=== PATIENT | male | born 1965 | race Caucasian/White ===

== ENCOUNTER 2020-04-19 09:53 | Inpatient (IN) | payer OTHER ==
[2020-04-19] MEDS ORDERED: ASPIRIN 81 MG PO STA (10:05)
[2020-04-19] MEDS ORDERED: NITROGLYCERIN SL TABS 0.4 MG TAB SUBLINGUAL STA ×3 (10:05)
[2020-04-19] MEDS ORDERED: HEPARIN SODIUM,PORCINE 5,000 UNIT/ML 1 ML VIAL IV STA (10:05)
--- NOTE | 2020-04-19 10:08 | ED ---
General Adult HPI - General Chief complaint: Chest Pain Stated complaint: Chest pain Time Seen by Provider: 04/19/20 09:55 Source: patient, RN notes reviewed, old records reviewed Mode of arrival: ambulatory Limitations: no limitations - History of Present Illness Initial comments: This is a 54-year-old male who presents emergency Department complaining of onset of chest pain approximately 20 minutes ago. Patient states chest pain is severe in complaining of bilateral arm pain. Patient states he has family history of heart disease. Patient also has high blood pressure which he does not take any medicines for. Patient chews tobacco but does not smoke. Patient denies any diabetes or high cholesterol. Patient states he is somewhat short of breath. Patient is a little bit nauseous. Patient denies abdominal pain patient denies vomiting or diarrhea. Patient has had intermittent pain all week but has not told anyone. Patient denies any recent fever chills or cough. - Related Data Home Medications Medication Instructions Recorded Confirmed No Known Home Medications 04/19/20 04/19/20 Allergies Allergy/AdvReac Type Severity Reaction Status Date / Time No Known Allergies Allergy Verified 04/19/20 10:11 Review of Systems ROS Statement: Those systems with pertinent positive or pertinent negative responses have been documented in the HPI. ROS Other: All systems not noted in ROS Statement are negative. Past Medical History Past Medical History: Hypertension History of Any Multi-Drug Resistant Organisms: None Reported Past Surgical History: Appendectomy, Orthopedic Surgery Past Psychological History: No Psychological Hx Reported Smoking Status: Never smoker Past Alcohol Use History: Occasional Past Drug Use History: None Reported General Exam - General Exam Comments Initial Comments: GENERAL: Patient is well-developed and well-nourished. Patient is nontoxic and well- hydrated and is in mild distress. ENT: Neck is soft and supple. No significant lymphadenopathy is noted. Oropharynx is clear. Moist mucous membranes. Neck has full range of motion without eliciting any pain. EYES: The sclera were anicteric and conjunctiva were pink and moist. Extraocular movements were intact and pupils were equal round and reactive to light. Eyelids were unremarkable. PULMONARY: Unlabored respirations. Good breath sounds bilaterally. No audible rales rhonchi or wheezing was noted. CARDIOVASCULAR: There is a regular rate and rhythm without any murmurs gallops or rubs. ABDOMEN: Soft and nontender with normal bowel sounds. SKIN: Skin is clear with no lesions or rashes and otherwise unremarkable. NEUROLOGIC: Patient is alert and oriented x3. Cranial nerves II through XII are grossly intact. Motor and sensory are also intact. Normal speech, volume and content. Symmetrical smile. MUSCULOSKELETAL: Normal extremities with adequate strength and full range of motion. No lower extremity swelling or edema. No calf tenderness. LYMPHATICS: No significant lymphadenopathy is noted PSYCHIATRIC: Normal psychiatric evaluation. Limitations: no limitations Course Vital Signs 04/19/20 04/19/20 09:55 10:11 Temperature 98 F Pulse Rate 84 63 Respiratory 18 24 Rate Blood Pressure 118/87 O2 Sat by Pulse 100 100 Oximetry Medical Decision Making - Medical Decision Making EKG shows sinus rhythm with frequent PVCs at all so is at a rate of 75 bpm [place] interval is 128 QRS is 90 QT interval 364 QTC is 46. Patient also was ST segment elevation throughout the precordial leads. STEMI was called overhead. Dr. Willis responded literally immediately. Patient was given aspirin and heparin and nitroglycerin sublingual. Patient was admitted and consulted cardiology. I spoke with Dr. Ramos agreed to admit the patient admitted the patient wrote admitting orders and the patient went to the catheterization lab - Lab Data Result diagrams: 04/19/20 10:07 Lab Results 04/19/20 Range/Units 10:07 WBC 11.5 H (3.8-10.6) k/uL RBC 5.11 (4.30-5.90) m/uL Hgb 16.4 (13.0-17.5) gm/dL Hct 46.8 (39.0-53.0) % MCV 91.6 (80.0-100.0) fL MCH 32.0 (25.0-35.0) pg MCHC 35.0 (31.0-37.0) g/dL RDW 12.1 (11.5-15.5) % Plt Count 323 (150-450) k/uL MPV 6.5 Neutrophils % 51 % Lymphocytes % 37 % Monocytes % 6 % Eosinophils % 3 % Basophils % 1 % Neutrophils # 5.9 (1.3-7.7) k/uL Lymphocytes # 4.2 (1.0-4.8) k/uL Monocytes # 0.6 (0-1.0) k/uL Eosinophils # 0.3 (0-0.7) k/uL Basophils # 0.1 (0-0.2) k/uL Critical Care Time Critical Care Time: Yes Total Critical Care Time: 35 Disposition Clinical Impression: ST elevation myocardial infarction (STEMI) Disposition: ADMITTED IP TO THIS HOSP Referrals: Aristides Pimentel MD [Primary Care Provider] - 1-2 days Time of Disposition: 10:07
[2020-04-19 10:10] LABS: Basophils # (A) 0.1 k/uL (0-0.2); Basophils % (A) 1 %; Eosinophils # (A) 0.3 k/uL (0-0.7); Eosinophils % (A) 3 %; HCT 46.8 % (39.0-53.0); HGB 16.4 gm/dL (13.0-17.5); Lymphocytes # (A) 4.2 k/uL (1.0-4.8); Lymphocytes % (A) 37 %; MCV 91.6 fL (80.0-100.0); Mean Platelet Volume 6.5; Monocytes # (A) 0.6 k/uL (0-1.0); Monocytes % (A) 6 %; Neutrophils # (A) 5.9 k/uL (1.3-7.7); Neutrophils % (A) 51 %; Platelet Count 323 k/uL (150-450); RBC 5.11 m/uL (4.30-5.90); RDW 12.1 % (11.5-15.5); WBC 11.5 k/uL (3.8-10.6)
[2020-04-19] MEDS ORDERED: ONDANSETRON 4 MG/2 ML VIAL IVP STA (10:10)
--- NOTE | 2020-04-19 10:12 | P.CRDCN ---
History of Present Illness History of present illness: HISTORY OF PRESENTING ILLNESS This is a pleasant 54-year-old male past medical history significant for possible hypertension however untreated, prior tobacco abuse, and family history of coronary artery disease who presents for chest pain. He has not had follow- up with any doctors in some time. His admits he has a history of elevated blood pressures however does not take medications. He previously smoked up until a few years ago and occasionally uses chewing tobacco. He has been having some chest pressure sensation over the last week which has been coming and going. He was at [employer] and then noted sudden onset of chest pain approximately 20 minutes prior to arrival and therefore presented to emergency department. EKG shows anterior STEMI. He was given nitroglycerin without much improvement. DIAGNOSTICS EKG reveals sinus rhythm, ST elevation anterior leads. Chest xray pending. Laboratory reviewed, pending. Current cardiac medications include aspirin, heparin 4000 units. REVIEW OF SYSTEMS At the time of my exam: CONSTITUTIONAL: Denies fever or chills. CARDIOVASCULAR: +chest pain, +shortness of breath, no orthopnea, PND or palpitations. RESPIRATORY: Denies cough. GASTROINTESTINAL: Denies abdominal pain, diarrhea, constipation, nausea or vomiting. MUSCULOSKELETAL: Denies myalgias. NEUROLOGIC: Denies numbness, tingling or weakness. ENDOCRINE: Denies fatigue, weight change, polydipsia or polyurina. GENITOURINARY: Denies burning, hematuria or urgency with micturation. HEMATOLOGIC: Denies history of anemia or bleeding. PHYSICAL EXAMINATION Blood pressure 144/112 heart rate 82 afebrile and maintaining oxygen saturation on room air. CONSTITUTIONAL: Patient in visible distress. HEENT: Head is normocephalic. Pupils are equal, round. Sclerae anicteric. Mucous membranes of the mouth are moist. No JVD. No carotid bruit. CHEST EXAMINATION: Lungs are clear to auscultation. No chest wall tenderness is noted on palpation or with deep breathing. HEART EXAMINATION: Regular rate and rhythm. S1, S2 heard. No murmurs, gallops or rub. ABDOMEN: Soft, nontender. Positive bowel sounds. EXTREMITIES: 2+ peripheral pulses, no lower extremity edema and no calf tenderness. NEUROLOGIC EXAMINATION: Patient is awake, alert and oriented x3. ASSESSMENT 1. Anterior STEMI 2. Hypertension 3. Chewing tobacco and prior smoking tobacco abuse 4. Family history of CAD PLAN Discussed risks and benefits of heart catheterization and patient agreeable. Emergency heart catheterization with PCI. Past Medical History Past Medical History: Hypertension History of Any Multi-Drug Resistant Organisms: None Reported Past Surgical History: Appendectomy, Orthopedic Surgery Past Psychological History: No Psychological Hx Reported Smoking Status: Never smoker Past Alcohol Use History: Occasional Past Drug Use History: None Reported Medications and Allergies Home Medications Medication Instructions Recorded Confirmed Type Acetaminophen with Codeine 1 each PO Q4H PRN #20 tab 10/11/15 Rx [Tylenol w/codeine #3] methylPREDNISolone [Medrol] 4 mg PO DIRECTED #21 tab.ds.pk 10/11/15 Rx Allergies Allergy/AdvReac Type Severity Reaction Status Date / Time No Known Allergies Allergy Verified 04/19/20 09:55 Physical Exam Vitals: Vital Signs Temp Pulse Resp Pulse Ox 04/19/20 09:55 98 F 84 18 100 Intake and Output 04/18/20 04/19/20 04/19/20 22:59 06:59 14:59 Other: Weight 83.915 kg Results Intake and Output 04/18/20 04/19/20 04/19/20 22:59 06:59 14:59 Other: Weight 83.915 kg Patient Weight 04/20/20 06:59 Weight 83.915 kg
[2020-04-19] MEDS ORDERED: SODIUM CHLORIDE 0.9% 500 ML 500 ML IV ONE ×3 (10:14→10:53)
[2020-04-19] MEDS ORDERED: MORPHINE SULFATE 2 MG/ML SYRINGE IVP STA ×3 (10:17→21:56)
[2020-04-19] MEDS ORDERED: LORazepam 2 MG/ML INJ IV STA (10:18)
[2020-04-19 10:20] LABS: ALT 26 U/L (4-49); AST 25 U/L (17-59); African American GFR (CKD) >90 (>60 ml/min/1.73 sqM); Alkaline Phosphatase 73 U/L (38-126); Anion Gap 11 mmol/L; Blood Urea Nitrogen 20 mg/dL (9-20); Calcium 10.3 mg/dL (8.4-10.2); Carbon Dioxide 24 mmol/L (22-30); Chloride 103 mmol/L (98-107); Glucose 125 mg/dL (74-99); Non-African American GFR(CKD) 90 (>60 ml/min/1.73 sqM); Potassium 3.8 mmol/L (3.5-5.1); Sodium 138 mmol/L (137-145); Total Protein 8.3 g/dL (6.3-8.2)
--- NOTE | 2020-04-19 10:33 | XR ---
EXAMINATION TYPE: XR chest 1V DATE OF EXAM: 04/19/2020 COMPARISON: NONE HISTORY: Chest pain TECHNIQUE: Single frontal view of the chest is obtained. FINDINGS: There is no focal air space opacity, pleural effusion, or pneumothorax seen. The cardiac silhouette size is within normal limits. There are overlying leads. Postop change noted to the left bony glenoid The osseous structures are intact. IMPRESSION: No acute process.
[2020-04-19 10:37] LABS: INR 0.9 (<1.2); Prothrombin Time 10.1 sec (9.0-12.0)
[2020-04-19 10:47] LABS: Partial Thromboplastin Time 21.5 sec (22.0-30.0)
[2020-04-19] MEDS ORDERED: fentaNYL (PF) 50 MCG/ML 2 ML AMP IV ONE (10:50)
[2020-04-19] MEDS ORDERED: MIDAZOLAM 2 MG/2 ML VIAL IV ONE (10:50)
[2020-04-19] MEDS ORDERED: LIDOCAINE 1% INJ 10MG/ML (20 ML MDV) SQ ONE (10:51)
[2020-04-19] MEDS ORDERED: VERAPAMIL SYRINGE (5 MG/10 ML) INTRAARTER ONE (10:52)
[2020-04-19] MEDS ORDERED: HEPARIN SODIUM 1,000 UN/ML (10ML VL) IV ONE (10:54)
[2020-04-19] MEDS ORDERED: TICAGRELOR 90 MG TAB PO ONE (10:58)
[2020-04-19] MEDS ORDERED: NITROGLYCERIN 1000MCG/10ML SYRINGE INTRACORON ONE ×2 (11:00→11:05)
[2020-04-19] MEDS: niCARdipine Syringe (1,000 mcg/10 mL) INTRACORON ONE ×2 (11:10→11:22)
[2020-04-19] MEDS ORDERED: niCARdipine Syringe (1,000 mcg/10 mL) INTRACORON ONE (11:15)
[2020-04-19] MEDS ORDERED: IOPAMIDOL-370 125ML BTL INJ ONE ×2 (11:22→11:44)
[2020-04-19] MEDS ORDERED: IOPAMIDOL-370 50ML BTL INJ ONE (11:51)
[2020-04-19 12:25] LABS: Glucose,Whole Blood 103 mg/dL (75-99)
[2020-04-19] MEDS ORDERED: ZOLPIDEM 5 MG TAB PO PRN (15:03)
[2020-04-19] MEDS ORDERED: MAG HYDROX/AL HYDROX/SIMETH 30 ML CUP PO PRN (15:03)
[2020-04-19] MEDS ORDERED: NITROGLYCERIN SL TABS 0.4 MG TAB SUBLINGUAL PRN (15:03)
[2020-04-19] MEDS ORDERED: RX INFO: IV CONTRAST WAS GIVEN 1 EACH MISC MISCELLANE PRN (15:03)
[2020-04-19] MEDS ORDERED: ATROPINE SULFATE 0.1 MG/ML 10ML SYRINGE IV PRN (15:03)
[2020-04-19] MEDS ORDERED: NITROGLYCERIN-D5W PMX 50 MG in DEXTROSE/WATER 1 250ML.BAG IV SCH (15:15)
[2020-04-19] MEDS: ACETAMINOPHEN TAB 500 MG TAB PO PRN ×2 (15:42→20:17)
--- NOTE | 2020-04-19 18:01 | ECHOF ---
Referral Reason:evaluate left ventricular function MEASUREMENTS -------- HEIGHT: 177.8 cm WEIGHT: 83.9 kg BP: RVIDd: 1.9 cm (< 3.3) IVSd: 1.5 cm (0.6 - 1.1) LVIDd: 3.4 cm (3.9 - 5.3) LVPWd: 1.7 cm (0.6 - 1.1) IVSs: 1.2 cm LVIDs: 2.8 cm LVPWs: 2.1 cm LAESV Index (A-L): 22.29 ml/m Ao Diam: 3.2 cm (2.0 - 3.7) AV Cusp: 2.4 cm (1.5 - 2.6) LA Diam: 3.2 cm (2.7 - 3.8) MV EXCURSION: 17.007 mm (> 18.000) MV EF SLOPE: 82 mm/s (70 - 150) EPSS: 0.8 cm MV E Navi: 0.54 m/s MV DecT: 242 ms MV A Navi: 0.55 m/s MV E/A Ratio: 0.98 RAP: 5.00 mmHg RVSP: 9.06 mmHg FINDINGS -------- This was a technically difficult study with suboptimal views. The left ventricular size is normal. There is moderate concentric left ventricular hypertrophy. O verall left ventricular systolic function is moderately impaired with, an EF between 35 - 40 %. Api jocelyn anterior LV wall motion is hypokinetic. Apical lateral LV wall motion is hypokinetic. Apica l inferior LV wall motion is hypokinetic. Apical septum LV wall motion is hypokinetic. The right ventricle is normal in size. The left atrial size is normal. Normal LA size by volume 22+/-6 ml/m2. The right atrial size is normal. 5.0mg of Lumason was utilized for enhancement of images Aortic valve is trileaflet and is mildly thickened. The mitral valve is normal. There is trace mitral regurgitation. The tricuspid valve appears structurally normal. Trace tricuspid regurgitation present. Right rayna tricular systolic pressure is normal at < 35 mmHg. There is no pulmonic regurgitation present. The aortic root size is normal. Normal inferior vena cava with normal inspiratory collapse consistent with estimated right atrial pre ssure of 5 mmHg. There is no pericardial effusion. CONCLUSIONS -------- 1. The left ventricular size is normal. 2. There is moderate concentric left ventricular hypertrophy. 3. Overall left ventricular systolic function is moderately impaired with, an EF between 35 - 40 %. 4. Apical anterior LV wall motion is hypokinetic. 5. Apical lateral LV wall motion is hypokinetic. 6. Apical inferior LV wall motion is hypokinetic. 7. Apical septum LV wall motion is hypokinetic. 8. Aortic valve is trileaflet and is mildly thickened. 9. There is trace mitral regurgitation. 10. Trace tricuspid regurgitation present. 11. There is no pericardial effusion. PARKING SUPERVISOR: Tanisha Odom RDCS
[2020-04-19] MEDS: TICAGRELOR 90 MG TAB PO SCH (20:17)
--- NOTE | 2020-04-19 21:22 | P.PRCINT ---
Percutaneous Coronary Int. - Percutaneous Coronary Intervention Percutaneous Coronary Intervention: PROCEDURES PERFORMED: Left heart catheterization, bilateral coronary angiography, PCI of proximal LAD with 3.5 x 28mm Xience FARHANA, post dilated with a 4.0 NC balloon, aspiration thrombectomy LAD, intracoronary Nicardipine INDICATION: Anterior STEMI HISTORY: This is a pleasant 54-year-old male past medical history significant for likely hypertension, not on medications, prior smoking tobacco abuse, current chewing tobacco, and family history of CAD who has been having off and on chest pain over the last 1 week. He then noted excruciating chest pain today while at grocery store and immediately came to ER. EKG showed anterior STEMI and therefore LHC was recommended. CONSENT:I have discussed the risks, benefits and alternative therapies for the above-mentioned procedure and for both sedation/analgesia as well as necessary blood product administration, if indicated, as they pertain to this patient. The patient has indicated understanding and acceptance of the risks and procedures discussed. PROCEDURE: After the risks, benefits and alternatives of the above mentioned procedure explained in detail with the patient, informed consent was obtained. Patient was taken to the catheterization lab and prepped and draped in usual fashion. 1% lidocaine was used to anesthetize the right radial artery. A 6- Malawian sheath was placed in the right radial artery using modified Seldinger technique. Left coronary angiography was performed with a 6-Malawian CLS 3.5 guide catheter. Right coronary angiography was performed with an AR 2 catheter in various views. The decision was made to intervene on the LAD. Heparin was given for ACT > 250. A 0.014 BMW guidewire was inserted into the distal LAD. The lesion was predilated with a 2.5 x 12mm Balloon. Next a 3.5 x 28mm Xience FARHANA was place at the ostial LAD. The stent was post dilated with a 4.0 NC balloon. There was no reflow with possible apical LAD thrombus and therefore intracoronary Nicardipine was given and an Kingston catheter was advanced to the distal LAD with aspiration thombectomy performed. No reflow improved with ZACH 2-3 flow distally and therefore the wire was pulled. Final angiograms were performed. Pre intervention there was 100% stenosis with ZACH 0 flow. After intervention there was no signficant stenosis and ZACH 2-3 flow. Finally, a 6-Malawian pigtail catheter was inserted into the left ventricle and pressure measurements were obtained. The right radial sheath was removed and a TR band was placed with hemostasis achieved. The patient tolerated the procedure well. Patient was transported back to the post catheterization holding area in stable condition. Conscious Sedation: Patient was monitored under the direct supervision of vision of myself for conscious sedation using Versed and fentanyl for a total duration of 68 minutes HEMODYNAMICS: Aorta: 109/67 LV: 108/2 LVEDP 27mmHg SELECTIVE CORONARY ARTERIOGRAPHY: LEFT MAIN: The left main is a large caliber vessel which trifurcates into the LAD, a small caliber ramus and circumflex. There is no significant stenosis. LEFT ANTERIOR DESCENDING CORONARY ARTERY: LAD is a large caliber vessel which wraps around to the apex. There is 100% proximal LAD stenosis. RAMUS INTERMEDIUS: Ramus has mild 30% stenosis. LEFT CIRCUMFLEX CORONARY ARTERY: Left circumflex is a large caliber vessel which has a proximal 50-60% stenosis. RIGHT CORONARY ARTERY: The right coronary artery is a large caliber vessel which gives off a PDA and PLV branch and is the dominant vessel. The bifurcation of the PLV and PDA is proximal. The PDA has a very proximal 50% stenosis followed by tandem 80% and 50% stenoses. FINAL IMPRESSION: 1. CAD as described above with 100% proximal LAD stenosis, s/p PCI of proximal LAD with 3.5 x 28mm Xience FARHANA. Residual PDA 80% stenosis. 2. Elevated left-sided filling pressures PLAN: 1. Aggressive risk factor modification per most recent ACC/AHA guidelines. 2. Continue dual antiplatelets for 12 months. 3. May consider staged PCI of PDA.
[2020-04-19] MEDS ORDERED: MORPHINE SULFATE 4 MG/ML SYRINGE IVP PRN (22:06)
--- NOTE | 2020-04-19 22:09 | P.HPIM ---
History of Present Illness H&P Date: 04/19/20 Chief Complaint: Chest pain History of presenting complaint: This is a pleasant [address] Pimentel. Patient does chew tobacco. For 3 days been having chest pain on and off. Became progressively worse today. Present to the ER. It was radiating to both the arms. Hasn't a positive family history. Has a known history of hypertension but not taking any medications. Also some shortness of breath and nausea. Initial troponin was 0.117. EKG showed ST elevation anterior leads. Patient was taken to the cardiac catheterization lab. 100% occlusion of LAD was found that was successful angioplasty and stented. Patient and brought back to the ICU. Postprocedure patient still having chest pain. Put on a nitroglycerin drip. Still showing some ST elevation on the telemetry. Review of systems: GEN.: Tired EYES: None HEENT: None NECK: None RESPIRATORY: As above CARDIOVASCULAR: As above GASTROINTESTINAL: None GENITOURINARY: None MUSCULOSKELETAL: None LYMPHATICS: None HEMATOLOGICAL: None PSYCHIATRY: None NEUROLOGICAL: None Past medical history to include: Hypertension for which patient is not taking his medications Social history: . Did smoke in the past. Alcohol occasional. 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 EYES: Pupils equal. Conjunctiva normal. HEENT: External appearance of nose and ears normal, oral cavity grossly normal. NECK: JVD not raised; masses not palpable. HEART: First and second heart sounds are normal; no edema. LUNGS: Respiratory rate normal; fair air entry. ABDOMEN: Soft, nontender, liver spleen not palpable, no masses palpable. PSYCH: Alert and oriented x3; mood and affect normal. NEUROLOGICAL: Cranial nerves grossly intact; no facial asymmetry, power and sensation grossly intact. LYMPHATICS: No lymph nodes palpable in the axilla and neck INVESTIGATIONS, reviewed in the clinical context: White count 11.5 hemoglobin 16.4 platelets 323 potassium 3.8 creatinine 0.97 Troponin I 0.117 Coronavirus [PCF]-not detected EKG tracing personally reviewed by me-ST elevation in anterior leads, sinus rhythm, PVC Chest x-ray film personally reviewed by me-cardiomegaly 2-D echocardiogram-moderate concentric LVH, EF 35-40%. LV ma hypokinetic Assessment and plan: -Acute ST elevation myocardial infarction of the anterior wall, with urgent cardiac catheterization with LAD 100% occluded with successful stenting and angioplasty. Patient also started on aspirin Brillinta. -Post coronary intervention angina persisted. Patient is on a nitroglycerin dr miguel -Essential hypertension. We'll add beta donna -Reactive leukocytosis secondary to acute OR Care was discussed with the patient. Questions were answered. Patient was seen by Dr. Willis from cardiology. Patient's currently in the ICU. Past Medical History Past Medical History: Hypertension History of Any Multi-Drug Resistant Organisms: None Reported Past Surgical History: Appendectomy, Orthopedic Surgery Past Anesthesia/Blood Transfusion Reactions: No Reported Reaction Past Psychological History: No Psychological Hx Reported Smoking Status: Former smoker Past Alcohol Use History: Occasional Past Drug Use History: None Reported - Past Family History Father Family Medical History: Coronary Artery Disease (CAD) Medications and Allergies Home Medications Medication Instructions Recorded Confirmed Type No Known Home Medications 04/19/20 04/19/20 History Allergies Allergy/AdvReac Type Severity Reaction Status Date / Time No Known Allergies Allergy Verified 04/19/20 10:11 Physical Exam Vitals: Vital Signs Temp Pulse Resp BP Pulse Ox 04/19/20 21:00 64 13 106/64 96 04/19/20 20:00 97.7 F 71 19 122/81 93 L 04/19/20 19:00 68 17 102/64 95 04/19/20 18:45 78 29 H 102/64 95 04/19/20 18:30 58 L 15 138/75 94 L 04/19/20 18:15 67 15 138/75 95 04/19/20 18:00 67 18 121/77 95 04/19/20 17:45 72 22 121/77 94 L 04/19/20 17:30 67 14 119/77 94 L 04/19/20 17:15 64 20 119/77 93 L 04/19/20 17:00 74 14 130/87 94 L 04/19/20 16:45 68 14 130/87 95 04/19/20 16:30 68 13 131/87 94 L 04/19/20 16:15 68 16 131/87 92 L 04/19/20 16:00 75 9 L 122/77 93 L 04/19/20 15:45 70 9 L 122/77 93 L 04/19/20 15:30 75 7 L 119/80 94 L 04/19/20 15:15 70 12 119/80 94 L 04/19/20 15:00 68 5 L 116/72 96 04/19/20 14:45 61 13 116/72 94 L 04/19/20 14:30 68 17 127/84 96 04/19/20 14:15 64 14 127/84 96 04/19/20 14:00 65 16 118/87 95 04/19/20 13:45 67 24 118/87 97 04/19/20 13:30 55 L 23 112/79 96 04/19/20 13:15 65 13 109/76 97 04/19/20 13:00 57 L 0 L 108/78 96 04/19/20 12:45 63 14 115/74 95 04/19/20 12:30 98.4 F 89 32 H 124/77 95 04/19/20 12:18 67 6 L 04/19/20 12:00 24 04/19/20 10:32 60 22 118/77 97 04/19/20 10:23 56 L 26 H 121/86 97 04/19/20 10:22 21 04/19/20 10:21 60 20 126/89 100 04/19/20 10:16 64 20 132/89 99 04/19/20 10:11 63 24 118/87 100 04/19/20 10:05 180/128 100 04/19/20 10:02 20 168/117 100 04/19/20 09:55 98 F 84 18 100 Intake and Output 04/19/20 04/19/20 04/19/20 06:59 14:59 22:59 Intake Total 300 1202.325 Output Total 400 750 Balance -100 452.325 Intake: IV 300 450 Sodium Chloride 0.9% 500 150 450 ml 500 ml @ 0 mls/hr IV . [facility] Rx#: [id number] Intake, IV Titration 12.325 Amount Nitroglycerin-D5w Pmx 50 12.325 mg In Dextrose/Water 1 250ml.bag @ Titrate IV . Q0M [facility] Rx#:[id number] Oral 740 Output: Urine 400 750 Other: # Voids 1 1 Weight 83.915 kg Results CBC & Chem 7: 04/19/20 10:07 04/19/20 10:07 Labs: Abnormal Lab Results - Last 24 Hours (Table) 04/19/20 04/19/20 04/19/20 Range/Units 10:07 10:07 10:07 WBC 11.5 H (3.8-10.6) k/uL APTT 21.5 L (22.0-30.0) sec Glucose 125 H (74-99) mg/dL POC Glucose (mg/dL) (75-99) mg/dL Calcium 10.3 H (8.4-10.2) mg/dL Troponin I (0.000-0.034) ng/mL Total Protein 8.3 H (6.3-8.2) g/dL 04/19/20 04/19/20 Range/Units 10:07 12:24 WBC (3.8-10.6) k/uL APTT (22.0-30.0) sec Glucose (74-99) mg/dL POC Glucose (mg/dL) 103 H (75-99) mg/dL Calcium (8.4-10.2) mg/dL Troponin I 0.117 H* (0.000-0.034) ng/mL Total Protein (6.3-8.2) g/dL Thrombosis Risk Factor Assmnt - Choose All That Apply Any of the Below Risk Factors Present?: Yes Each Factor Represents 1 point: Age 41-60 years Thrombosis Risk Factor Assessment Total Risk Factor Score: 1 Thrombosis Risk Factor Assessment Level: Low Risk
[2020-04-19] MEDS: ATORVASTATIN 80 MG TAB PO SCH (22:15)
[2020-04-19] MEDS: METOPROLOL TARTRATE 12.5 MG TAB PO SCH (22:15)
[2020-04-20 04:21] LABS: Basophils % (A) 0 %; Eosinophils # (A) 0.1 k/uL (0-0.7); Eosinophils % (A) 1 %; HCT 41.3 % (39.0-53.0); HGB 13.6 gm/dL (13.0-17.5); Lymphocytes # (A) 1.7 k/uL (1.0-4.8); Lymphocytes % (A) 13 %; MCH 30.8 pg (25.0-35.0); MCHC 33.1 g/dL (31.0-37.0); MCV 93.2 fL (80.0-100.0); Mean Platelet Volume 6.6; Monocytes # (A) 0.8 k/uL (0-1.0); Monocytes % (A) 6 %; Neutrophils # (A) 10.7 k/uL (1.3-7.7); Neutrophils % (A) 79 %; Platelet Count 228 k/uL (150-450); RBC 4.43 m/uL (4.30-5.90); RDW 12.3 % (11.5-15.5); WBC 13.6 k/uL (3.8-10.6)
[2020-04-20 05:00] LABS: African American GFR (CKD) >90 (>60 ml/min/1.73 sqM); Anion Gap 7 mmol/L; Blood Urea Nitrogen 11 mg/dL (9-20); Calcium 8.8 mg/dL (8.4-10.2); Carbon Dioxide 27 mmol/L (22-30); Chloride 103 mmol/L (98-107); Cholesterol 182 mg/dL (<200); Glucose 110 mg/dL (74-99); HDL Cholesterol 46 mg/dL (40-60); LDL Cholesterol,Calculated 98 mg/dL (0-99); Non-African American GFR(CKD) >90 (>60 ml/min/1.73 sqM); Potassium 4.2 mmol/L (3.5-5.1); Sodium 137 mmol/L (137-145); Triglycerides 192 mg/dL (<150)
[2020-04-20] MEDS: ASPIRIN 81 MG PO SCH (08:17)
[2020-04-20] MEDS: METOPROLOL TARTRATE 12.5 MG TAB PO SCH ×2 (08:17→20:22)
[2020-04-20] MEDS: TICAGRELOR 90 MG TAB PO SCH ×2 (08:17→20:22)
[2020-04-20] MEDS: ACETAMINOPHEN TAB 500 MG TAB PO PRN ×3 (08:17→20:22)
--- NOTE | 2020-04-20 09:19 | P.PN ---
Subjective HISTORY OF PRESENTING ILLNESS This is a pleasant 54-year-old male past medical history significant for possible hypertension however untreated, prior tobacco abuse, and family history of coronary artery disease who presents for chest pain. He has not had follow- up with any doctors in some time. His admits he has a history of elevated blood pressures however does not take medications. He previously smoked up until a few years ago and occasionally uses chewing tobacco. He has been having some chest pressure sensation over the last week which has been coming and going. He was at [facility] and then noted sudden onset of chest pain approximately 20 minutes prior to arrival and therefore presented to emergency department. EKG shows anterior STEMI. He was given nitroglycerin without much improvement. 04/20/20 Patient seen and examined. Patient had successful PCI of his proximal LAD with some no reflow of the distal LAD which was improved with thrombectomy and intracoronary nicardipine. Patient was still having some chest pain and persistent ST elevations after the procedure and therefore was placed on nitroglycerin drip. He has still had chest pain since last night. There was still a mid PDA lesion which was felt best treated with stage PCI. Due to ongoing symptoms, discussed possible PCI today. Echo was performed with ejection fraction 35-40%. He denies any shortness breath currently. REVIEW OF SYSTEMS At the time of my exam: CONSTITUTIONAL: Denies fever or chills. CARDIOVASCULAR: +chest pain, no orthopnea, PND or palpitations. RESPIRATORY: Denies cough. GASTROINTESTINAL: Denies abdominal pain, diarrhea, constipation, nausea or vomiting. MUSCULOSKELETAL: Denies myalgias. NEUROLOGIC: Denies numbness, tingling or weakness. ENDOCRINE: Denies fatigue, weight change, polydipsia or polyurina. GENITOURINARY: Denies burning, hematuria or urgency with micturation. HEMATOLOGIC: Denies history of anemia or bleeding. PHYSICAL EXAMINATION Blood pressure 104/68 heart rate 51 afebrile and maintaining oxygen saturation on room air. CONSTITUTIONAL: Patient in no acute distress HEENT: Head is normocephalic. Pupils are equal, round. Sclerae anicteric. Mucous membranes of the mouth are moist. No JVD. No carotid bruit. CHEST EXAMINATION: Lungs are clear to auscultation. No chest wall tenderness is noted on palpation or with deep breathing. HEART EXAMINATION: Regular rate and rhythm. S1, S2 heard. No murmurs, gallops or rub. ABDOMEN: Soft, nontender. Positive bowel sounds. EXTREMITIES: 2+ peripheral pulses, no lower extremity edema and no calf tenderness. NEUROLOGIC EXAMINATION: Patient is awake, alert and oriented x3. ASSESSMENT 1. Anterior STEMI s/p PCI of proximal LAD on 04/19/20 2. Hypertension 3. Chewing tobacco and prior smoking tobacco abuse 4. Family history of CAD 5. Ischemic cardiomyopathy with ejection fraction 35-40% 6. Coronary artery disease with a residual PDA 80% stenosis 7. Ongoing chest pain, questionably ischemic versus post PR pain. Patient does still have residual PDA stenosis. PLAN Usual post PR pain resolves within 6-8 hours. Discussed possible PCI of PDA given ongoing chest pain and patient is agreeable. Keep patient nothing by mouth and left heart cath and PCI today of PDA. Add low-dose losartan for heart failure regimen although blood pressure borderline low. Objective - Vital Signs Vital signs: Vital Signs Temp 97.6 F 04/20/20 04:00 Pulse 51 L 04/20/20 08:00 Resp 12 04/20/20 08:00 BP 104/68 04/20/20 08:00 Pulse Ox 94 L 04/20/20 08:00 Intake & Output 04/19/20 04/20/20 04/20/20 18:59 06:59 18:59 Intake Total 1342.625 729.162 385 Output Total 1150 1350 Balance 192.625 -620.838 385 Weight 83.915 kg 89.4 kg Intake: IV 600 475 25 Sodium Chloride 0.9% 500 450 300 ml 500 ml @ 0 mls/hr IV . [facility] Rx#: [id number] kvo 175 25 Intake, IV Titration 2.625 14.162 Amount Nitroglycerin-D5w Pmx 50 2.625 14.162 mg In Dextrose/Water 1 250ml.bag @ Titrate IV . Q0M [facility] Rx#:[id number] Oral 740 240 360 Output: Urine 1150 1350 Other: # Voids 1 1 - Labs CBC & Chem 7: 04/20/20 02:49 04/20/20 02:49 Labs: Abnormal Lab Results - Last 24 Hours (Table) 04/19/20 04/19/20 04/19/20 Range/Units 10:07 10:07 10:07 WBC 11.5 H (3.8-10.6) k/uL Neutrophils # (1.3-7.7) k/uL APTT 21.5 L (22.0-30.0) sec Glucose 125 H (74-99) mg/dL POC Glucose (mg/dL) (75-99) mg/dL Calcium 10.3 H (8.4-10.2) mg/dL Troponin I (0.000-0.034) ng/mL Total Protein 8.3 H (6.3-8.2) g/dL Triglycerides (<150) mg/dL 04/19/20 04/19/20 04/20/20 Range/Units 10:07 12:24 02:49 WBC (3.8-10.6) k/uL Neutrophils # (1.3-7.7) k/uL APTT (22.0-30.0) sec Glucose 110 H (74-99) mg/dL POC Glucose (mg/dL) 103 H (75-99) mg/dL Calcium (8.4-10.2) mg/dL Troponin I 0.117 H* (0.000-0.034) ng/mL Total Protein (6.3-8.2) g/dL Triglycerides 192 H (<150) mg/dL 04/20/20 04/20/20 Range/Units 02:49 02:49 WBC 13.6 H (3.8-10.6) k/uL Neutrophils # 10.7 H (1.3-7.7) k/uL APTT (22.0-30.0) sec Glucose (74-99) mg/dL POC Glucose (mg/dL) (75-99) mg/dL Calcium (8.4-10.2) mg/dL Troponin I 83.800 H* (0.000-0.034) ng/mL Total Protein (6.3-8.2) g/dL Triglycerides (<150) mg/dL
[2020-04-20] MEDS ORDERED: SODIUM CHLORIDE 0.9% 1,000 ML in EMPTY BAG 1 BAG IV ONE (09:20)
[2020-04-20] MEDS ORDERED: NITROGLYCERIN SL TABS 0.4 MG TAB SUBLINGUAL PRN (09:20)
[2020-04-20] MEDS ORDERED: ALPRAZolam 0.5 MG TAB PO PRN (09:20)
[2020-04-20] MEDS ORDERED: ASPIRIN 325 MG TAB PO STA (09:20)
[2020-04-20] MEDS ORDERED: IV FLUID CONTINUATION 1,000 ML IV ONE (13:20)
[2020-04-20] MEDS ORDERED: LIDOCAINE 1% INJ 10MG/ML (20 ML MDV) ONE (13:22)
[2020-04-20] MEDS ORDERED: VERAPAMIL 2.5 MG/ML 2 ML AMP ONE (13:22)
[2020-04-20] MEDS ORDERED: fentaNYL (PF) 50 MCG/ML 2 ML AMP ONE (13:32)
[2020-04-20] MEDS ORDERED: fentaNYL (PF) 50 MCG/ML 2 ML AMP IV ONE (13:35)
[2020-04-20] MEDS ORDERED: MIDAZOLAM 2 MG/2 ML VIAL IV ONE (13:35)
[2020-04-20] MEDS ORDERED: LIDOCAINE 1% INJ 10MG/ML (20 ML MDV) SQ ONE (13:36)
[2020-04-20] MEDS ORDERED: VERAPAMIL SYRINGE (5 MG/10 ML) INTRAARTER ONE (13:37)
[2020-04-20] MEDS ORDERED: HEPARIN SODIUM 1,000 UN/ML (10ML VL) IV ONE ×3 (13:44→14:12)
[2020-04-20] MEDS ORDERED: NITROGLYCERIN 1000MCG/10ML SYRINGE INTRACORON ONE ×2 (13:50→13:55)
[2020-04-20] MEDS ORDERED: IOPAMIDOL-370 125ML BTL INJ ONE (14:05)
[2020-04-20] MEDS: LOSARTAN 25 MG TAB PO SCH (15:37)
[2020-04-20] MEDS ORDERED: RX INFO: IV CONTRAST WAS GIVEN 1 EACH MISC MISCELLANE PRN (17:48)
[2020-04-20] MEDS ORDERED: SODIUM CHLORIDE 0.9% 1,000 ML IV SCH (18:00)
--- NOTE | 2020-04-20 20:19 | P.PRCINT ---
Percutaneous Coronary Int. - Percutaneous Coronary Intervention Percutaneous Coronary Intervention: PROCEDURES PERFORMED: Bilateral coronary angiography, PCI of mid PDA with a 2.0 x 8mm [place] FARHANA, iFR of proximal PDA INDICATION: Staged PCI HISTORY: This is a pleasant 54-year-old male past medical history significant for likely hypertension, not on medications, prior smoking tobacco abuse, current chewing tobacco, and family history of CAD who has been having off and on chest pain over the last 1 week and was found to have anterior STEMI and underwent successful PCI of proximal LAD 3/6 however did have persistent chest pain and persistent ST elevations consistent with microvascula dysfunction. Patient has however been having persistent chest pain and therefore recommendation was to perform left coronary angiography and staged PCI of PDA. CONSENT:I have discussed the risks, benefits and alternative therapies for the above-mentioned procedure and for both sedation/analgesia as well as necessary blood product administration, if indicated, as they pertain to this patient. The patient has indicated understanding and acceptance of the risks and procedures discussed. PROCEDURE: After the risks, benefits and alternatives of the above mentioned procedure explained in detail with the patient, informed consent was obtained. Patient was taken to the catheterization lab and prepped and draped in usual fashion. 1% lidocaine was used to anesthetize the right radial artery. A 6- Vincentian sheath was placed in the right radial artery using modified Seldinger technique. Left coronary angiography was performed with a 6-Vincentian [place] 3.5 catheter. The decision was made to intervene on the PDA. Heparin was given for ACT > 250. A 0.014 BMW guidewire was inserted into the distal PDA. A 2.0 x 8mm [place] FARHANA was placed at the mid PDA. There was a more proximal PDA 50% stenosis and therefore iFR was performed and resulted at 0.97. The wires were then removed. Final angiograms were performed. Pre intervention there was 85% stenosis with ZACH 3 flow. After intervention there was no signficant stenosis and ZACH 3 flow. The right radial sheath was removed and a TR band was placed with hemostasis achieved. The patient tolerated the procedure well. Patient was transported back to the post catheterization holding area in stable condition. Conscious Sedation: Patient was monitored under the direct supervision of vision of myself for conscious sedation using Versed and fentanyl for a total duration of 30 minutes HEMODYNAMICS: Aorta: 112/68 SELECTIVE CORONARY ARTERIOGRAPHY: LEFT MAIN: The left main is a large caliber vessel which trifurcates into the LAD, a small caliber ramus and circumflex. There is no significant stenosis. LEFT ANTERIOR DESCENDING CORONARY ARTERY: LAD is a large caliber vessel which wraps around to the apex. The proximal LAD stent is patent with ZACH 3 flow of the LAD. There is apical 70% LAD stenosis. RAMUS INTERMEDIUS: Ramus has mild 30% stenosis. LEFT CIRCUMFLEX CORONARY ARTERY: Left circumflex is a large caliber vessel which has a proximal 50-60% stenosis. RIGHT CORONARY ARTERY: The right coronary artery is a large caliber vessel which gives off a PDA and PLV branch and is the dominant vessel. The bifurcation of the PLV and PDA is proximal. The PDA has a very proximal 50% stenosis followed by tandem 80% and 50% stenoses. FINAL IMPRESSION: 1. CAD as described above with successful PCI of mid PDA 80% stenosis with a 2.0 x 8mm [place] FARHANA. 2. Patent LAD stent PLAN: 1. Aggressive risk factor modification per most recent ACC/AHA guidelines. 2. Continue dual antiplatelets for 12 months.
[2020-04-20] MEDS: ALPRAZolam 0.25 MG TAB PO PRN (20:22)
[2020-04-20] MEDS: ATORVASTATIN 80 MG TAB PO SCH (20:22)
--- NOTE | 2020-04-20 22:44 | P.PN ---
Progress Note - Text Progress Note Date: 04/20/20 Chief Complaint: Chest pain History of presenting complaint: This is a pleasant [address] Pimentel. Patient does chew tobacco. For 3 days been having chest pain on and off. Became progressively worse today. Present to the ER. It was radiating to both the arms. Hasn't a positive family history. Has a known history of hypertension but not taking any medications. Also some shortness of breath and nausea. Initial troponin was 0.117. EKG showed ST elevation anterior leads. Patient was taken to the cardiac catheterization lab. 100% occlusion of LAD was found that was successful angioplasty and stented. Patient and brought back to the ICU. Postprocedure patient still having chest pain. Put on a nitroglycerin drip. Still showing some ST elevation on the telemetry. Today-patient is taken back to the cardiac director of cardiac cath lab. PDA was successfully angioplasty stented. Back in ICU. No chest pain. On nitroglycerin drip. Review of systems: Was done for constitutional, cardiovascular, GI, pulmonary. relevant finding as above Active Medications Acetaminophen (Acetaminophen Tab 500 Mg Tab) 1,000 mg PO Q6HR PRN PRN Reason: Fever and/ or Pain Last Admin: 04/20/20 20:22 Dose: 1,000 mg Documented by: Al Hydroxide/Mg Hydroxide (Mag Hydrox/Al Hydrox/Simeth 30 Ml Cup) 30 ml PO Q4HR PRN PRN Reason: Heartburn Alprazolam (Alprazolam 0.25 Mg Tab) 0.25 mg PO Q6HR PRN PRN Reason: Mild Anxiety Last Admin: 04/20/20 20:22 Dose: 0.25 mg Documented by: Alprazolam (Alprazolam 0.5 Mg Tab) 0.5 mg PO Q6HR PRN PRN Reason: Moderate Anxiety Aspirin (Aspirin 81 Mg) 81 mg PO DAILY [facility] Last Admin: 04/20/20 08:17 Dose: 81 mg Documented by: Atorvastatin Calcium (Atorvastatin 80 Mg Tab) 80 mg PO HS [facility] Last Admin: 04/20/20 20:22 Dose: 80 mg Documented by: Atropine Sulfate (Atropine Sulfate 0.1 Mg/Ml 10ml Syringe) 0.5 mg IV ONCE PRN PRN Reason: Symptomatic Bradycardia Nitroglycerin/Dextrose 50 mg/ (IV Solution) 250 mls @ 0 mls/hr IV .Q0M [facility]; Protocol Last Titration: 04/19/20 22:20 Dose: 5 mcg/min, 1.5 mls/hr Documented by: Heparin Sodium (Porcine) 10, (000 unit/ Sodium Chloride) 1,001 mls @ 999 mls/hr IRRIGATION ONCE PRN PRN Reason: INTRA-OP Stop: 04/21/20 23:00 Heparin Sodium (Porcine) 2,500 (unit/ Sodium Chloride) 250.5 mls @ 250 mls/hr IRRIGATION ONCE PRN PRN Reason: INTRA-OP Stop: 04/21/20 23:00 Losartan Potassium (Losartan 25 Mg Tab) 12.5 mg PO DAILY [facility] Last Admin: 04/20/20 15:37 Dose: 12.5 mg Documented by: Metoprolol Tartrate (Metoprolol Tartrate 12.5 Mg Tab) 12.5 mg PO BID [facility] Last Admin: 04/20/20 20:22 Dose: 12.5 mg Documented by: Miscellaneous Information (Rx Info: Iv Contrast Was Given 1 Each Misc) 1 each MISCELLANE DAILY PRN PRN Reason: Per Protocol Stop: 04/21/20 15:03 Miscellaneous Information (Rx Info: Iv Contrast Was Given 1 Each Misc) 1 each MISCELLANE DAILY PRN PRN Reason: Per Protocol Stop: 04/22/20 17:48 Morphine Sulfate (Morphine Sulfate 4 Mg/Ml Syringe) 4 mg IVP Q4HR PRN PRN Reason: Pain Nitroglycerin (Nitroglycerin Sl Tabs 0.4 Mg Tab) 0.4 mg SUBLINGUAL Q5M PRN PRN Reason: Chest Pain Nitroglycerin (Nitroglycerin Sl Tabs 0.4 Mg Tab) 0.4 mg SUBLINGUAL Q5M PRN PRN Reason: Chest Pain Ticagrelor (Ticagrelor 90 Mg Tab) 90 mg PO BID [facility] Last Admin: 04/20/20 20:22 Dose: 90 mg Documented by: Zolpidem Tartrate (Zolpidem 5 Mg Tab) 5 mg PO HS PRN PRN Reason: Insomnia Last Admin: 04/19/20 20:17 Dose: 5 mg Documented by: Past medical history to include: Hypertension for which patient is not taking his medications Social history: . Did smoke in the past. 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 Conjunctiva normal. HEENT: External appearance of nose and ears normal, oral cavity grossly normal. NECK: JVD not raised; masses not palpable. HEART: First and second heart sounds are normal; no edema. LUNGS: Respiratory rate normal; fair air entry. ABDOMEN: Soft, nontender, liver spleen not palpable, no masses palpable. PSYCH: Alert and oriented x3; mood and affect normal. INVESTIGATIONS, reviewed in the clinical context: April 20: WBC 13.6 hemoglobin 13.6 potassium 4.2 creatinine 0.89 Troponin I 83.8 LDL 98 White count 11.5 hemoglobin 16.4 platelets 323 potassium 3.8 creatinine 0.97 Troponin I 0.117 Coronavirus [PCF]-not detected EKG tracing personally reviewed by me-ST elevation in anterior leads, sinus rhythm, PVC Chest x-ray film personally reviewed by me-cardiomegaly 2-D echocardiogram-moderate concentric LVH, EF 35-40%. LV ma hypokinetic Assessment and plan: -Acute ST elevation myocardial infarction of the anterior wall, with urgent cardiac catheterization with LAD 100% occluded with successful stenting and angioplasty. Patient also started on aspirin Brillinta. -Redo cardiac catheterization today with stenting to the PDA. -Essential hypertension. We'll add beta donna -Reactive leukocytosis secondary to acute [place] -Acute ischemic cardiomyopathy EF 35-40%. On beta donna, Cozaar. Add small dose of Aldactone -IV heparin monitoring Care was discussed with the patient. Questions were answered. Patient was seen by Dr. Willis from cardiology. Patient's currently in the ICU.
[2020-04-21 04:58] LABS: African American GFR (CKD) >90 (>60 ml/min/1.73 sqM); Anion Gap 8 mmol/L; Blood Urea Nitrogen 10 mg/dL (9-20); Carbon Dioxide 25 mmol/L (22-30); Chloride 104 mmol/L (98-107); Glucose 109 mg/dL (74-99); Non-African American GFR(CKD) >90 (>60 ml/min/1.73 sqM); Potassium 4.3 mmol/L (3.5-5.1); Sodium 137 mmol/L (137-145)
[2020-04-21] MEDS ORDERED: HEPARIN SODIUM,PORCINE 10,000 UNIT in SODIUM CHLORIDE 0.9% 1,000 ML IRRIGATION PRN (07:00)
[2020-04-21] MEDS ORDERED: HEPARIN SODIUM,PORCINE 2,500 UNIT in SODIUM CHLORIDE 0.9% 250 ML IRRIGATION PRN (07:00)
[2020-04-21] MEDS: ACETAMINOPHEN TAB 500 MG TAB PO PRN (08:14)
[2020-04-21] MEDS: SPIRONOLACTONE 25 MG TAB PO SCH (08:24)
[2020-04-21] MEDS: ASPIRIN 81 MG PO SCH (08:24)
[2020-04-21] MEDS: METOPROLOL TARTRATE 12.5 MG TAB PO SCH (08:24)
[2020-04-21] MEDS: TICAGRELOR 90 MG TAB PO SCH ×2 (08:24→20:21)
[2020-04-21] MEDS: LOSARTAN 25 MG TAB PO SCH (08:24)
[2020-04-21] MEDS ORDERED: METOPROLOL TARTRATE 12.5 MG TAB PO STA (08:57)
[2020-04-21 10:36] VITALS: BMI 26.6
--- NOTE | 2020-04-21 11:34 | P.PN ---
Subjective Progress Note Date: 04/21/20 This patient with history of hypertension and smoking who had stent placement of the LAD for non-STEMI. Subsequently was having chest pains and had repeated cardiac catheterization by Dr. Willis and had stent placement of the PDA Yesterday. Since last procedure , patient has been feeling well. Denies any chest pain, shortness of breath, dizziness or syncope. He is sitting up in the chair. It is vital signs are stable with a blood pressure of about 120/80 and heart rate in the 60s. Lungs are clear. Heart is regular. No JVD. No peripheral edema. His until site is healing well. Patient will be marked transferred to telemetry unit. We'll increase his activity. If stable patient be discharged home tomorrow. Objective - Vital Signs Vital signs: Vital Signs Temp 98.3 F 04/21/20 08:00 Pulse 68 04/21/20 11:00 Resp 14 04/21/20 11:00 BP 124/85 04/21/20 09:00 Pulse Ox 95 04/21/20 09:00 Intake & Output 04/20/20 04/21/20 04/21/20 18:59 06:59 18:59 Intake Total 1380 1500 75 Output Total 1450 1290 800 Balance -70 210 -725 Weight 89.1 kg 89.1 kg Intake: IV 520 1020 75 Sodium Chloride 0.9% 1, 900 75 000 ml @ 75 mls/hr IV . [id number] [facility] Rx#:[id number] kvo 420 120 Oral 860 480 Output: Urine 1450 1290 800 Other: Voiding Method Toilet Urinal # Voids 1 - Exam GENERAL EXAM: Patient is alert and oriented and doesn't appear to be in any acute distress HEENT: Normocephalic. Normal reaction of pupils, equal size, normal range of extraocular motion. No erythema or exudates in the throat. NECK: No masses, no nuchal rigidity. CHEST: No chest wall deformity. LUNGS: Equal air entry with no crackles or wheeze. HEART: S1 and S2 normal with no audible mumurs or gallops. Regular rhythm, femorals equal on both sides.. ABDOMEN: No hepatosplenomegaly, normal bowel sounds, no guarding or rigidity. SKIN: No rashes CENTRAL NERVOUS SYSTEM: No focal deficits. EXTREMITIES: No cyanosis, clubbing or edema. - Labs CBC & Chem 7: 04/20/20 02:49 04/21/20 03:37 Labs: Abnormal Lab Results - Last 24 Hours (Table) 04/21/20 Range/Units 03:37 Glucose 109 H (74-99) mg/dL Assessment and Plan (1) ST elevation myocardial infarction (STEMI) Current Visit: Yes Status: Acute Code(s): I21.3 - ST ELEVATION (STEMI) MYOCARDIAL INFARCTION OF [facility] SITE SNOMED Code(s): 31526555 (2) Essential hypertension Current Visit: Yes Status: Acute Code(s): I10 - ESSENTIAL (PRIMARY) HYPERTENSION SNOMED Code(s): 55385647 Plan: Continue current medical therapy. Increase activity. If stable patient will be discharged home tomorrow
[2020-04-21] MEDS: ATORVASTATIN 80 MG TAB PO SCH (20:21)
[2020-04-21] MEDS: METOPROLOL TARTRATE 25 MG TAB PO SCH (20:21)
--- NOTE | 2020-04-21 20:51 | P.PN ---
Progress Note - Text Progress Note Date: 04/21/20 Chief Complaint: Chest pain History of presenting complaint: This is a pleasant [address] Pimentel. Patient does chew tobacco. For 3 days been having chest pain on and off. Became progressively worse today. Present to the ER. It was radiating to both the arms. Hasn't a positive family history. Has a known history of hypertension but not taking any medications. Also some shortness of breath and nausea. Initial troponin was 0.117. EKG showed ST elevation anterior leads. Patient was taken to the cardiac catheterization lab. 100% occlusion of LAD was found that was successful angioplasty and stented. Patient and brought back to the ICU. Postprocedure patient still having chest pain. Put on a nitroglycerin drip. Still showing some ST elevation on the telemetry.next day taken back to the cardiac builder's labourer. PDA was successfully angioplasty stented Today-ICU: Sitting up in a chair. Upper the bathroom. No chest pain or dizziness. Did tolerate his lunch. at the bedside. He is better. Review of systems: Was done for constitutional, cardiovascular, GI, pulmonary. relevant finding as above Active Medications Acetaminophen (Acetaminophen Tab 500 Mg Tab) 1,000 mg PO Q6HR PRN PRN Reason: Fever and/ or Pain Last Admin: 04/21/20 08:14 Dose: 1,000 mg Documented by: Al Hydroxide/Mg Hydroxide (Mag Hydrox/Al Hydrox/Simeth 30 Ml Cup) 30 ml PO Q4HR PRN PRN Reason: Heartburn Alprazolam (Alprazolam 0.25 Mg Tab) 0.25 mg PO Q6HR PRN PRN Reason: Mild Anxiety Last Admin: 04/20/20 20:22 Dose: 0.25 mg Documented by: Alprazolam (Alprazolam 0.5 Mg Tab) 0.5 mg PO Q6HR PRN PRN Reason: Moderate Anxiety Aspirin (Aspirin 81 Mg) 81 mg PO DAILY [facility] Last Admin: 04/21/20 08:24 Dose: 81 mg Documented by: Atorvastatin Calcium (Atorvastatin 80 Mg Tab) 80 mg PO HS [facility] Last Admin: 04/21/20 20:21 Dose: 80 mg Documented by: Atropine Sulfate (Atropine Sulfate 0.1 Mg/Ml 10ml Syringe) 0.5 mg IV ONCE PRN PRN Reason: Symptomatic Bradycardia Heparin Sodium (Porcine) 10, (000 unit/ Sodium Chloride) 1,001 mls @ 999 mls/hr IRRIGATION ONCE PRN PRN Reason: INTRA-OP Stop: 04/21/20 23:00 Heparin Sodium (Porcine) 2,500 (unit/ Sodium Chloride) 250.5 mls @ 250 mls/hr IRRIGATION ONCE PRN PRN Reason: INTRA-OP Stop: 04/21/20 23:00 Losartan Potassium (Losartan 25 Mg Tab) 12.5 mg PO DAILY [facility] Last Admin: 04/21/20 08:24 Dose: 12.5 mg Documented by: Metoprolol Tartrate (Metoprolol Tartrate 25 Mg Tab) 25 mg PO BID [facility] Last Admin: 04/21/20 20:21 Dose: 25 mg Documented by: Miscellaneous Information (Rx Info: Iv Contrast Was Given 1 Each Misc) 1 each MISCELLANE DAILY PRN PRN Reason: Per Protocol Stop: 04/22/20 17:48 Morphine Sulfate (Morphine Sulfate 4 Mg/Ml Syringe) 4 mg IVP Q4HR PRN PRN Reason: Pain Nitroglycerin (Nitroglycerin Sl Tabs 0.4 Mg Tab) 0.4 mg SUBLINGUAL Q5M PRN PRN Reason: Chest Pain Nitroglycerin (Nitroglycerin Sl Tabs 0.4 Mg Tab) 0.4 mg SUBLINGUAL Q5M PRN PRN Reason: Chest Pain Spironolactone (Spironolactone 25 Mg Tab) 12.5 mg PO DAILY [facility] Last Admin: 04/21/20 08:24 Dose: 12.5 mg Documented by: Ticagrelor (Ticagrelor 90 Mg Tab) 90 mg PO BID [facility] Last Admin: 04/21/20 20:21 Dose: 90 mg Documented by: Zolpidem Tartrate (Zolpidem 5 Mg Tab) 5 mg PO HS PRN PRN Reason: Insomnia Last Admin: 04/19/20 20:17 Dose: 5 mg Documented by: Past medical history to include: Hypertension for which patient is not taking his medications Social history: . Did smoke in the past. 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 Conjunctiva normal. HEENT: External appearance of nose and ears normal, oral cavity grossly normal. NECK: JVD not raised; masses not palpable. HEART: First and second heart sounds are normal; no edema. LUNGS: Respiratory rate normal; fair air entry. ABDOMEN: Soft, nontender, liver spleen not palpable, no masses palpable. PSYCH: Alert and oriented x3; mood and affect normal. INVESTIGATIONS, reviewed in the clinical context: April 21: Potassium 4.3 creatinine 0.80 April 20: WBC 13.6 hemoglobin 13.6 potassium 4.2 creatinine 0.89 Troponin I 83.8 LDL 98 White count 11.5 hemoglobin 16.4 platelets 323 potassium 3.8 creatinine 0.97 Troponin I 0.117 Coronavirus [PCF]-not detected EKG tracing personally reviewed by me-ST elevation in anterior leads, sinus rhythm, PVC Chest x-ray film personally reviewed by me-cardiomegaly 2-D echocardiogram-moderate concentric LVH, EF 35-40%. LV ma hypokinetic Assessment and plan: -Acute ST elevation myocardial infarction of the anterior wall, with urgent cardiac catheterization with LAD 100% occluded with successful stenting and angioplasty. Patient also started on aspirin Brillinta.Redo cardiac cathete rization today with stenting to the PDA. -Essential hypertension. beta donna -Reactive leukocytosis secondary to acute [place] -Acute ischemic cardiomyopathy EF 35-40%. On beta donna, Cozaar. Aldactone -IV heparin monitoring Care was discussed with the patient and at the bedside. Was also nurse in the hospital here. Questions answered. Encouraged to increase ambulation in the room.
[2020-04-21] MEDS: ALPRAZolam 0.25 MG TAB PO PRN (23:50)
[2020-04-22 04:22] LABS: HGB 15.2 gm/dL (13.0-17.5); MCH 31.7 pg (25.0-35.0); MCHC 33.8 g/dL (31.0-37.0); MCV 93.8 fL (80.0-100.0); Mean Platelet Volume 6.7; Platelet Count 248 k/uL (150-450); RBC 4.79 m/uL (4.30-5.90); RDW 12.2 % (11.5-15.5)
[2020-04-22 04:44] LABS: African American GFR (CKD) >90 (>60 ml/min/1.73 sqM); Anion Gap 9 mmol/L; Blood Urea Nitrogen 13 mg/dL (9-20); Calcium 9.2 mg/dL (8.4-10.2); Carbon Dioxide 26 mmol/L (22-30); Chloride 101 mmol/L (98-107); Glucose 114 mg/dL (74-99); Non-African American GFR(CKD) >90 (>60 ml/min/1.73 sqM); Potassium 4.5 mmol/L (3.5-5.1); Sodium 136 mmol/L (137-145)
[2020-04-22] MEDS: LOSARTAN 25 MG TAB PO SCH (08:19)
[2020-04-22] MEDS: ASPIRIN 81 MG PO SCH (08:19)
[2020-04-22] MEDS: METOPROLOL TARTRATE 25 MG TAB PO SCH (08:20)
[2020-04-22] MEDS: SPIRONOLACTONE 25 MG TAB PO SCH (08:20)
[2020-04-22] MEDS: TICAGRELOR 90 MG TAB PO SCH (08:20)
--- NOTE | 2020-04-22 11:41 | P.PN ---
Subjective Progress Note Date: 04/22/20 This patient with history of hypertension and smoking who had stent placement of the LAD for non-STEMI. Subsequently was having chest pains and had repeated cardiac catheterization by Dr. Willis and had stent placement of the PDA Yesterday. Since last procedure , patient has been feeling well. Denies any chest pain, shortness of breath, dizziness or syncope. He is sitting up in the chair. It is vital signs are stable with a blood pressure of about 120/80 and heart rate in the 60s. Lungs are clear. Heart is regular. No JVD. No peripheral edema. His until site is healing well. Patient will be marked transferred to telemetry unit. We'll increase his activity. If stable patient be discharged home tomorrow. 04/22/2020: This patient remained stable since yesterday. Denies any chest pain or shortness of breath. Lungs are clear. Heart is regular. No JVD. No peripheral edema. His blood pressure is 120/80. Pulse rate is in the 80s. Lungs are clear. Heart is regular. Patient is going to be discharged home. Follow-up with Dr. Willis as an outpatient. Objective - Vital Signs Vital signs: Vital Signs Temp 98.3 F 04/22/20 08:00 Pulse 80 04/22/20 08:00 Resp 14 04/22/20 08:00 BP 125/80 04/22/20 08:00 Pulse Ox 94 L 04/22/20 08:00 Intake & Output 04/21/20 04/22/20 04/22/20 18:59 06:59 18:59 Intake Total 75 300 Output Total 800 550 600 Balance -725 -550 -300 Weight 89.1 kg 85 kg Intake: IV 75 Sodium Chloride 0.9% 1, 75 000 ml @ 75 mls/hr IV . [id number] SARAH Rx#:[id number] Oral 300 Output: Urine 800 550 600 Other: Voiding Method Toilet Toilet Toilet Urinal Urinal # Voids 3 1 - Exam GENERAL EXAM: Patient is alert and oriented and doesn't appear to be in any acute distress HEENT: Normocephalic. Normal reaction of pupils, equal size, normal range of extraocular motion. No erythema or exudates in the throat. NECK: No masses, no nuchal rigidity. CHEST: No chest wall deformity. LUNGS: Equal air entry with no crackles or wheeze. HEART: S1 and S2 normal with no audible mumurs or gallops. Regular rhythm, femorals equal on both sides.. ABDOMEN: No hepatosplenomegaly, normal bowel sounds, no guarding or rigidity. SKIN: No rashes CENTRAL NERVOUS SYSTEM: No focal deficits. EXTREMITIES: No cyanosis, clubbing or edema. - Labs CBC & Chem 7: 04/22/20 03:17 04/22/20 03:17 Labs: Abnormal Lab Results - Last 24 Hours (Table) 04/22/20 04/22/20 Range/Units 03:17 03:17 WBC 12.0 H (3.8-10.6) k/uL Sodium 136 L (137-145) mmol/L Glucose 114 H (74-99) mg/dL Assessment and Plan (1) ST elevation myocardial infarction (STEMI) Current Visit: Yes Status: Acute Code(s): I21.3 - ST ELEVATION (STEMI) MYOCARDIAL INFARCTION OF [facility] SITE SNOMED Code(s): 65837147 (2) Essential hypertension Current Visit: Yes Status: Acute Code(s): I10 - ESSENTIAL (PRIMARY) HYPERTENSION SNOMED Code(s): 42545943 Plan: Patient is clinically stable without any recurrence of chest pains. Tolerating activity. Vital signs are stable. Patient being discharged home to have follow-up within the office in one week
[2020-04-22 11:58] VITALS: BP 113/80; PULSE 70; RESP 16; TEMP 98.1
--- NOTE | 2020-04-23 17:02 | P.DS ---
Providers Date of admission: 04/19/20 10:44 Expected date of discharge: 04/22/20 Attending physician: Miguel A Ramos Consults: 04/19/20 15:03 Consult Physician Routine Consulting Provider: Sin Dalton Consult Reason/Comments: Post Interventional patient Do you want consulting provider notified?: Already Contacted Consult Physician Routine Consulting Provider: Mauro Willis Consult Reason/Comments: STEMI Do you want consulting provider notified?: Already Contacted 04/20/20 17:48 Consult Physician Routine Consulting Provider: Sin Dalton Consult Reason/Comments: Post Interventional patient Do you want consulting provider notified?: Already Contacted Primary care physician: Aristides Pimentel [facility] Course: Chief Complaint: Chest pain History of presenting complaint: This is a pleasant [address] Pimentel. Patient does chew tobacco. For 3 days been having chest pain on and off. Became progressively worse today. Present to the ER. It was radiating to both the arms. Hasn't a positive family history. Has a known history of hypertension but not taking any medications. Also some shortness of breath and nausea. Initial troponin was 0.117. EKG showed ST elevation anterior leads. Patient was taken to the cardiac catheterization lab. 100% occlusion of LAD was found that was successful angioplasty and stented. Patient and brought back to the ICU. Postprocedure patient still having chest pain. Put on a nitroglycerin drip. Still showing some ST elevation on the telemetry.next day taken back to the cardiac cathodic protection technician. PDA was successfully angioplasty stented Today-ICU: Feeling well. Up and about. No cardiac symptoms. Discussed with the patient. Cleared by cardiology to go home. Consultation: Cardiology aguilar Past medical history to include: Hypertension for which patient is not taking his medications Social history: . Did smoke in the past. Alcohol occasional. 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 Conjunctiva normal. HEENT: External appearance of nose and ears normal, oral cavity grossly normal. NECK: JVD not raised; masses not palpable. HEART: First and second heart sounds are normal; no edema. LUNGS: Respiratory rate normal; fair air entry. ABDOMEN: Soft, nontender, liver spleen not palpable, no masses palpable. PSYCH: Alert and oriented x3; mood and affect normal. INVESTIGATIONS, reviewed in the clinical context: April 22: White count 12 hemoglobin 15.2 potassium 4.5 creatinine 0.96 April 21: Potassium 4.3 creatinine 0.80 April 20: WBC 13.6 hemoglobin 13.6 potassium 4.2 creatinine 0.89 Troponin I 83.8 LDL 98 White count 11.5 hemoglobin 16.4 platelets 323 potassium 3.8 creatinine 0.97 Troponin I 0.117, 83.8 LDL 98 Coronavirus [PCF]-not detected EKG tracing personally reviewed by me-ST elevation in anterior leads, sinus rhythm, PVC Chest x-ray film personally reviewed by me-cardiomegaly 2-D echocardiogram-moderate concentric LVH, EF 35-40%. LV ma hypokinetic Assessment and plan: -Acute ST elevation myocardial infarction of the anterior wall, with urgent cardiac catheterization with LAD 100% occluded with successful stenting and angioplasty. Patient also started on aspirin Brillinta.Redo cardiac catheterization today with stenting to the PDA. -Essential hypertension. beta donna -Hypercholesterolemia. On Lipitor -Reactive leukocytosis secondary to acute SC -Acute ischemic cardiomyopathy EF 35-40%. On beta donna, Cozaar. Aldactone -IV heparin monitoring-discontinued Disposition: Home Plan - Discharge Summary Discharge Rx Participant: Yes New Discharge Prescriptions: New Ticagrelor [Brilinta] 90 mg PO BID #60 tab Spironolactone [Aldactone] 12.5 mg PO DAILY #90 tab Aspirin 81 mg PO DAILY #90 chew Losartan [Cozaar] 12.5 mg PO DAILY #90 tab Atorvastatin [Lipitor] 80 mg PO HS #90 tab Metoprolol Tartrate [Lopressor] 25 mg PO BID #180 tab Nitroglycerin Sl Tabs [Nitrostat] 0.4 mg SUBLINGUAL Q5M PRN #30 tab PRN Reason: Chest Pain Discharge Medication List Aspirin 81 mg PO DAILY #90 chew 04/22/20 [Rx] Atorvastatin [Lipitor] 80 mg PO HS #90 tab 04/22/20 [Rx] Losartan [Cozaar] 12.5 mg PO DAILY #90 tab 04/22/20 [Rx] Metoprolol Tartrate [Lopressor] 25 mg PO BID #180 tab 04/22/20 [Rx] Nitroglycerin Sl Tabs [Nitrostat] 0.4 mg SUBLINGUAL Q5M PRN #30 tab 04/22/20 [Rx] Spironolactone [Aldactone] 12.5 mg PO DAILY #90 tab 04/22/20 [Rx] Ticagrelor [Brilinta] 90 mg PO BID #60 tab 04/22/20 [Rx] Follow up Appointment(s)/Referral(s): Mauro Willis DO [STAFF PHYSICIAN] - 1 Week (New patient; office will call to set up appointment. ) Aristides Pimentel MD [Primary Care Provider] - 1-2 days (New patient; office will call to set up appointment ) Patient Instructions/Handouts: *Surgery [facility] - After Heart Catheterization - Senior Quality Assurance Engineer Instructions, Heart Attack (DC), Cardiac Rehabilitation (DC) Activity/Diet/Wound Care/Special Instructions: See *After heart catherization * instructions. Discharge Disposition: HOME SELF-CARE
== END 2020-04-22 14:41 | disposition home or self-care (01) | DRG 247 ==
LOC: EC 09:53 → 2SICU 10:44 → EC 10:48 → 2SICU 11:20
PROVIDERS: ADMIT Hospitalist; ATTEND Hospitalist
PROC: B2111ZZ Fluoroscopy of Multiple Coronary Arteries using Low Osmolar Contrast (ICD-10-PCS; principal; 2020-04-19 10:31)
PROC: 4A023N7 Measurement of Cardiac Sampling and Pressure, Left Heart, Percutaneous Approach (ICD-10-PCS; principal; 2020-04-19 10:31)
PROC: 027034Z Dilation of Coronary Artery, One Artery with Drug-eluting Intraluminal Device, Percutaneous Approach (ICD-10-PCS; principal; 2020-04-19 10:31)
PROC: B2111ZZ Fluoroscopy of Multiple Coronary Arteries using Low Osmolar Contrast (ICD-10-PCS; 2020-04-20 12:00)
PROC: 027034Z Dilation of Coronary Artery, One Artery with Drug-eluting Intraluminal Device, Percutaneous Approach (ICD-10-PCS; 2020-04-20 12:00)
PROC: 4A023N7 Measurement of Cardiac Sampling and Pressure, Left Heart, Percutaneous Approach (ICD-10-PCS; 2020-04-20 12:00)
DX: I21.09 ST elevation (STEMI) myocardial infarction involving other coronary artery of anterior wall (principal); I25.10 Atherosclerotic heart disease of native coronary artery without angina pectoris; D72.828 Other elevated white blood cell count; E78.00 Pure hypercholesterolemia, unspecified; I10 Essential (primary) hypertension; Z20.822 Contact with and (suspected) exposure to COVID-19; I25.5 Ischemic cardiomyopathy; I49.3 Ventricular premature depolarization; F17.220 Nicotine dependence, chewing tobacco, uncomplicated; Z82.49 Family history of ischemic heart disease and other diseases of the circulatory system
CPT/HCPCS: 36415; 71045; 80048; 80053; 80061; 83735; 84484; 85025; 85027; 85610; 85730; 87635; 93005; 93306; 93454; 93458; 93571; 96361; 96374; 96375; 99285; 99291

== ENCOUNTER → 2020-05-09 | Outpatient (CLI) | payer OTHER ==
--- NOTE | 2020-05-09 11:40 | US ---
EXAMINATION TYPE: US carotid duplex BILAT DATE OF EXAM: 05/09/2020 COMPARISON: NONE CLINICAL HISTORY: I65.23 occlusion and stenosis of bilateral carotid. Patient had heart attack 2 week s ago 2 stents put in. EXAM MEASUREMENTS: RIGHT: Peak Systolic Velocity (PSV) cm/sec ----- Right CCA: 61.9 ----- Right ICA: 76.4 ----- Right ECA: 115.7 ICA/CCA ratio: 1.2 RIGHT: End Diastole cm/sec ----- Right CCA: 18.3 ----- Right ICA: 29.9 ----- Right ECA: 14.0 LEFT: Peak Systolic Velocity (PSV) cm/sec ----- Left CCA: 88.1 ----- Left ICA: 83.7 ----- Left ECA: 91.0 ICA/CCA ratio: 1.0 LEFT: End Diastole cm/sec ----- Left CCA: 27.0 ----- Left ICA: 35.7 ----- Left ECA: 9.6 VERTEBRALS (direction of flow): Right Vertebral: Antegrade Left Vertebral: Antegrade Rhythm: Normal No significant stenosis seen IMPRESSION: No significant hemodynamic stenosis as visualized. Criteria for Assigning % of Stenosis / Diameter reduction (Estimation based on the indirect measurements of the internal carotid artery velocities (ICA PSV). 1. Normal (no stenosis)=ICA PSV < 125 cm/s: ratio < 2.0: ICA EDV<40 cm/s. 2. Less than 50% stenosis=ICA PSV < 125 cm/s: ratio < 2.0: ICA EDV<40 cm/s. 3. 50 to 69% stenosis=ICA PSV of 125 to 230 cm/s: ration 2.0 ? 4.0: ICA EDV 40-100 cm/s. 4. Greater than 70% stenosis to near occlusion= ICA PSV > 230 cm/s: ratio > 4.0: ICA EDV > 100 cm/s. 5. Near occlusion= ICA PSV velocities may be low or undetectable: variable ratio and ICA EDV. 6. Total occlusion=unable to detect flow.
== END | disposition home or self-care (01) ==
LOC: RADUSWWP 10:51
PROVIDERS: ATTEND Family Medicine
DX: I65.23 Occlusion and stenosis of bilateral carotid arteries (principal)
CPT/HCPCS: 93880

== ENCOUNTER → 2020-11-24 | Outpatient (CLI) | payer OTHER ==
[2020-11-24 11:23] LABS: Basophils # (A) 0.05 X 10*3/uL (0.00-0.10); Basophils % (A) 0.7 %; Eosinophils # (A) 0.44 X 10*3/uL (0.04-0.35); Eosinophils % (A) 5.9 %; HCT 44.2 % (39.6-50.0); HGB 14.7 g/dL (13.0-17.0); Lymphocytes # (A) 2.32 X 10*3/uL (0.90-5.00); Lymphocytes % (A) 31.3 %; MCH 31.3 pg (27.0-32.0); MCHC 33.3 g/dL (32.0-37.0); Mean Platelet Volume 8.9 fL (9.5-12.2); Monocytes # (A) 0.67 X 10*3/uL (0.20-1.00); Neutrophils # (A) 3.93 X 10*3/uL (1.80-7.70); Platelet Count 256 X 10*3/uL (140-440); RDW 12.5 % (11.5-14.5); WBC 7.42 X 10*3/uL (4.50-10.00)
[2020-11-24 11:50] LABS: African American GFR (CKD) 113.2 (60.0-200.0); Albumin 4.6 g/dL (3.8-4.9); Albumin/Globulin Ratio 1.85 (1.60-3.17); Anion Gap 11.6 mmol/L (4.00-12.00); BUN/Creat Ratio 16.84 Ratio (12.00-20.00); Blood Urea Nitrogen 14.7 mg/dL (9.0-27.0); C Reactive Protein, High Sens 0.248 mg/L (0.000-3.000); Calcium 9.8 mg/dL (8.7-10.3); Carbon Dioxide 24.9 mmol/L (21.6-31.8); Chol/HDL Ratio 1.89 Ratio; Globulin 2.5 g/dL (1.6-3.3); HDL Cholesterol 67.2 mg/dL (40.00-60.00); LDL Cholesterol,Calculated 43.2 mg/dL (0.0-131.0); Non-African American GFR(CKD) 97.7 (60.0-200.0); PSA Annual Screen 0.3 ng/mL (0.000-4.000); Potassium 4.9 mmol/L (3.5-5.5); Total Protein 7.1 g/dL (6.2-8.2); VLDL Calculation 16.6 mg/dL (5.00-40.00)
== END | disposition home or self-care (01) ==
LOC: LABWHC1 07:43
PROVIDERS: ATTEND Physician Assistant Medical
DX: Z00.00 Encounter for general adult medical examination without abnormal findings (principal); Z13.220 Encounter for screening for lipoid disorders; Z12.5 Encounter for screening for malignant neoplasm of prostate; I10 Essential (primary) hypertension
CPT/HCPCS: 80061; 80053; 85025; 86141; 36415; G0103

== ENCOUNTER → 2021-05-05 | Outpatient (CLI) | payer OTHER ==
[2021-05-05 10:46] LABS: ALT 26 U/L (10-49); AST 20 U/L (14-35)
== END | disposition home or self-care (01) ==
LOC: LABWHC1 07:16
PROVIDERS: ATTEND Internal Medicine
DX: E78.2 Mixed hyperlipidemia (principal)
CPT/HCPCS: 36415; 80061; 84450; 84460

== ENCOUNTER 2021-07-18 09:15 | Emergency (ER) | payer OTHER ==
[2021-07-18] MEDS ORDERED: KETOROLAC 15 MG/ML 1 ML VIAL IM STA (10:04)
[2021-07-18] MEDS ORDERED: HYDROcodone/APAP 5-325MG 1 EACH TAB PO STA (10:05)
--- NOTE | 2021-07-18 10:32 | ED ---
Extremity Problem HPI - General Chief complaint: Extremity Problem,Nontraumatic Stated complaint: lt hip pain Time Seen by Provider: 07/18/21 09:23 Source: patient, family, RN notes reviewed Mode of arrival: ambulatory Limitations: no limitations - History of Present Illness Initial comments: This is a 55-year-old male who presents to the emergency department for 3 days of left hip pain. He denies any known injury. States that this is painful to the touch and he is having difficulty walking. He tried taking Tylenol for the last couple of days with no improvement. He has not been icing the area. He had a similar episode several years ago, however his states that this improved with movement. Denies any fevers, chills, sore throat, cough, dyspnea, chest pain, palpitations, abdominal pain, nausea, vomiting, diarrhea, back pain, or headaches. MD Complaint: extremity pain Onset/Timin -: days(s) Location: left, other (hip) History of Same: Yes Radiation: none Worsens with: weight bearing - Related Data Previous Rx's Medication Instructions Recorded Aspirin 81 mg PO DAILY #90 chew 04/22/20 Atorvastatin [Lipitor] 80 mg PO HS #90 tab 04/22/20 Losartan [Cozaar] 12.5 mg PO DAILY #90 tab 04/22/20 Metoprolol Tartrate [Lopressor] 25 mg PO BID #180 tab 04/22/20 Nitroglycerin Sl Tabs [Nitrostat] 0.4 mg SUBLINGUAL Q5M PRN #30 tab 04/22/20 Spironolactone [Aldactone] 12.5 mg PO DAILY #90 tab 04/22/20 Ticagrelor [Brilinta] 90 mg PO BID #60 tab 04/22/20 Acetaminophen-Codeine 300-30mg 1 tab PO Q6H PRN 3 Days #12 tablet 07/18/21 [Tylenol w/codeine #3] Celecoxib [CeleBREX] 200 mg PO BID PRN #30 capsule 07/18/21 Allergies Allergy/AdvReac Type Severity Reaction Status Date / Time No Known Allergies Allergy Verified 07/18/21 09:18 Review of Systems ROS Statement: Those systems with pertinent positive or pertinent negative responses have been documented in the HPI. ROS Other: All systems not noted in ROS Statement are negative. Past Medical History Past Medical History: Hypertension, Myocardial Infarction (HI) History of Any Multi-Drug Resistant Organisms: None Reported Past Surgical History: Appendectomy, Heart Catheterization With Stent, Orthopedic Surgery Past Anesthesia/Blood Transfusion Reactions: No Reported Reaction Past Psychological History: No Psychological Hx Reported Smoking Status: Former smoker Past Alcohol Use History: Occasional Past Drug Use History: None Reported - Past Family History Father Family Medical History: Coronary Artery Disease (CAD) General Exam Limitations: no limitations General appearance: alert, in distress Head exam: Present: atraumatic, normocephalic, normal inspection Respiratory exam: Present: normal lung sounds bilaterally. Absent: respiratory distress, wheezes, rales, rhonchi, stridor Cardiovascular Exam: Present: regular rate, normal rhythm, normal heart sounds. Absent: systolic murmur, diastolic murmur, rubs, gallop, clicks Left Hip exam: Present: tenderness (Laterally and medially). Absent: full ROM (Pain with active and passive extension and valgus varus maneuvers.), swelling, abrasion, ecchymosis, deformity, crepitus, dislocation, erythema Neurological exam: Present: alert, oriented X3, CN II-XII intact Psychiatric exam: Present: normal affect, normal mood Skin exam: Present: warm, dry, intact, normal color. Absent: rash Course Vital Signs 07/18/21 07/18/21 07/18/21 09:18 09:57 12:08 Temperature 98.3 F 98.4 F 98.1 F Pulse Rate 76 66 71 Respiratory 16 18 16 Rate Blood Pressure 127/71 119/72 117/83 O2 Sat by Pulse 95 94 L 96 Oximetry Medical Decision Making - Medical Decision Making This is a 55-year-old male who presents to the emergency department with left hip pain. X-rays obtained which revealed no acute abnormalities. Pain improved with 5mg of Maceo in the emergency department. Patient does take 81 mg baby aspirin daily due to a history of myocardial infarction. Celebrex prescribed for anti-inflammatory effects, as it does not interfere with the antiplatelet effects of aspirin. 3 day supply of Maceo also prescribed, he is advised to use this sparingly and avoid driving or operating machinery when taking this. Instructed him to apply heat at this point in the injury. Return precautions reviewed in depth, the patient is instructed to return to the emergency department with any new, worsening, or concerning symptoms. Patient verbalized understanding. This case was discussed in detail with the attending ED physician. Presentation, findings, and treatment plan discussed in detail as well. - Radiology Data Radiology results: report reviewed, image reviewed Disposition Clinical Impression: Strain of left hip Disposition: HOME SELF-CARE Instructions (If sedation given, give patient instructions): Hip Sprain (ED), Hip Pain (ED) Additional Instructions: Return to the emergency department with any new, worsening, or concerning symptoms. Follow up with your primary care provider in 1-2 days. Prescriptions: Celecoxib [CeleBREX] 200 mg PO BID PRN #30 capsule PRN Reason: Pain Acetaminophen-Codeine 300-30mg [Tylenol w/codeine #3] 1 tab PO Q6H PRN 3 Days #12 tablet PRN Reason: Pain Is patient prescribed a controlled substance at d/c from ED?: Yes When asked, does pt state using other controlled substances?: No If prescribed controlled substance>3 days was MAPS reviewed?: Prescribed <3 Days Referrals: Aristides Pimentel MD [Primary Care Provider] - 1-2 days
--- NOTE | 2021-07-18 11:11 | XR ---
EXAMINATION TYPE: XR Hip Complete LT DATE OF EXAM: 07/18/2021 10:38 AM INDICATION: Patient age:Male; 55 years old; Reason for study: Pain; COMPARISON: None. TECHNIQUE: The left hip was examined in the frontal and lateral projections FINDINGS: Calcification off the lateral aspect of the greater trochanter appears chronic process like ly related to heterotrophic calcification. Mild osteoarthritic formation of the acetabulum.No evidenc e of any acute osseous pathology, joint dislocation, or soft tissue swelling. IMPRESSION: 1. No acute osseous pathology. 2. Mild osteoarthritic changes of the left hip.
[2021-07-18 12:10] VITALS: BP 117/83; PULSE 71; RESP 16; TEMP 98.1
== END 2021-07-18 12:09 | disposition home or self-care (01) ==
LOC: EC 09:15
DX: S76.012A Strain of muscle, fascia and tendon of left hip, initial encounter (principal); I10 Essential (primary) hypertension; I25.2 Old myocardial infarction; Z87.891 Personal history of nicotine dependence; X58.XXXA Exposure to other specified factors, initial encounter
CPT/HCPCS: 73502; 99283; 96372; J1885

== ENCOUNTER → 2022-11-03 | Outpatient (CLI) | payer OTHER ==
[2022-11-03 11:35] LABS: ALT 24 U/L (10-49); AST 20 U/L (14-35); Chol/HDL Ratio 2.44 Ratio; LDL Cholesterol,Calculated 40.2 mg/dL (0.0-131.0)
== END | disposition home or self-care (01) ==
LOC: LABWHC1 06:50
PROVIDERS: ATTEND Internal Medicine Interventional Cardiology
DX: E78.2 Mixed hyperlipidemia (principal)
CPT/HCPCS: 36415; 80061; 84450; 84460